=== PATIENT | female | born 1950 | race Caucasian/White ===

== ENCOUNTER 2023-01-16 09:21 | Observation (INO) | payer OTHER, SELFPAY ==
[2023-01-16] VITALS (9 sets, daily range): BP systolic 98–122; BP diastolic 55–63; PULSE 71–87; RESP 14–20; TEMP 36.3; O2SAT 91–93; BMI 24.7
--- NOTE | ~2023-01-16 | XR_ITS ---
EXAMINATION: XR chest 2V DATE: 01/16/2023 10:09 INDICATION: Shortness of breath TECHNIQUE: AP and lateral views of the chest are obtained. COMPARISON: 03/28/2017 FINDINGS: There are minimal airspace opacities of the lung bases. There are small pleural effusions. No pneumothorax is identified. The cardiomediastinal silhouette is normal. There is severe lower thor acic spondylosis. There are changes of anterior fusion in the lower cervical spine. IMPRESSION: 1. Bibasilar airspace opacities, consistent with atelectasis versus pneumonia. 2. Small pleural effusions. Reviewed, dictated and finalized at location B.
--- NOTE | 2023-01-16 06:53 | ADMGEN ---
This patient, Debbie Zapien, was admitted to [facility] Surg Room 330-02. Patient/family oriented to hospital policies and general routines including ID bracelet, bed and alarms, visiting hours, pain management, procedures, bathroom and other care routines, personal items, smoking policy, room service/diet, and visiting hours. Information on how to activate the Rapid Response Team has been discussed. Patient/Family are encouraged to report perceived risks to care and to ask questions if they do not understand what they are told or what they should do.
--- NOTE | 2023-01-16 09:12 | ECG_ITS ---
Measurements Intervals [place] Rate: 67 P: 80 MI: 133 QRS: 0 QRSD: 90 T: 43 QT: 435 QTc: 462 Interpretive Statements SINUS RHYTHM ANTEROSEPTAL INFARCT, AGE INDETERMINATE BASELINE ARTIFACT- I, II, III, AVR, AVL, AVF, V3 ABNORMAL ECG NO PREVIOUS ECG AVAILABLE FOR COMPARISON Electronically Signed On 01-16-2023 10:41:45 CDT by Sky Andujar D.O.
[2023-01-16] MEDS: PREGABALIN (*CRX) 75 MG CAPSULE 150 MG PO ×3 (10:43→17:51)
[2023-01-16] MEDS: DOCUSATE SODIUM 100 MG CAPSULE PO ×2 (10:44→17:51)
[2023-01-16] MEDS: ATORVASTATIN 40 MG TABLET PO (10:44)
[2023-01-16] MEDS: FERROUS SULFATE 325 MG TABLET DR PO (10:44)
[2023-01-16] MEDS: BACLOFEN 10 MG TABLET PO ×2 (10:44→17:51)
[2023-01-16] MEDS: DULoxetine HCL 60 MG CAPSULE.DR PO (10:44)
[2023-01-16] MEDS: predniSONE 20 MG TABLET 60 MG PO (10:44)
[2023-01-16] MEDS: ACETAMINOPHEN 325 MG TABLET 650 MG PO (10:56)
[2023-01-16] MEDS: ALBUTEROL SULFATE NEB 2.5 MG/3 ML INH INHALATION ×4 (10:56→20:56)
[2023-01-16] MEDS: IPRATROPIUM BR 0.02% INH SOLN 0.5 MG/2.5 ML VIAL INHALATION ×4 (10:56→20:56)
[2023-01-16] MEDS: ENOXAPARIN 40 MG/0.4 ML SYRINGE SUB-Q (10:56)
[2023-01-16 11:20] LABS: Basophils Percent Auto 0.2 % (0.2-1.2); Hematocrit 42.3 % (37.0-47.0); Hemoglobin 13.3 g/dL (12.0-15.0); Immature Granulocyte Absolute 0.06 K/mm3 (0.00-0.031); Immature Granulocyte Percent A 0.5 % (0-0.5); Lymphocytes Absolute Auto 0.98 K/mm3 (0.9-3.2); Lymphocytes Percent Auto 7.7 % (18.3-44.2); Mean Corpuscular HGB Conc 31.4 g/dl (32-36); Mean Corpuscular Hemoglobin 30.2 pg (26-34); Mean Corpuscular Volume 95.9 fl (80-100); Mean Platelet Volume 11.6 fl (7.4-10.4); Monocytes Absolute Auto 0.1 K/mm3 (0.1-0.6); Monocytes Percent Auto 0.9 % (2.6-8.5); Neutrophils Absolute Auto 11.5 K/mm3 (1.3-6.7); Neutrophils Percent Auto 90.7 % (45.5-73.1); Platelet Count Result 221 k/mm3 (150-375); Red Blood Count 4.41 M/mm3 (4.2-5.4); Red Cell Distribution Width 14.2 % (11.5-14.5); White Blood Count 12.7 K/mm3 (4.5-10.0)
[2023-01-16] MEDS: AZITHROMYCIN 500 MG/NS 250 ML 500 MG/250 ML BAG 250 MG IVPB (11:29)
[2023-01-16 11:31] LABS: Lactic Acid Reflex 0.9 mmol/L (0.7-2.0)
[2023-01-16 11:34] LABS: Alanine Aminotransferase 16 U/L (6-35); Albumin Level 4.2 g/dL (3.5-5.1); Alkaline Phosphatase 87 U/L (38-126); Anion Gap 11 mmol/L (8-16); Aspartate Amino Transferase 28 U/L (14-36); Bilirubin,Total 0.8 mg/dL (0.2-1.3); Blood Urea Nitrogen 20 mg/dL (7-17); Carbon Dioxide 28 mmol/L (22-30); Chloride 98 mmol/L (98-107); Cholesterol 173 mg/dL (0-200); Estimated CRCL calculation 63 ml/min; Estimated Glomerular Filt Rate > 60; Glucose 110 mg/dL (65-110); HDL Direct 52 mg/dL; Potassium 4.4 mmol/L (3.4-5.0); Sodium 137 mmol/L (137-145); Triglycerides 81 mg/dL (<150)
[2023-01-16 11:42] LABS: LDL Cholesterol Direct 85 mg/dL
[2023-01-16 11:43] LABS: Prothrombin Time 13.7 Seconds (11.1-14.7)
[2023-01-16 11:44] LABS: Partial Thromboplastin Time 33.6 SECONDS (22.3-36.8)
--- NOTE | 2023-01-16 13:37 | PM.IMHP ---
H&P: HPI History of Present Illness Date/Time: 01/16/23 13:37 Chief Complaint: Shortness of breath, productive cough Narrative: This is a pleasant 72-year-old female with a past medical history of COPD chronically wears 2 L of oxygen, chronic back pain, depression, hyperlipidemia, and hypertension. She initially presented to an outside hospital with complaints of shortness of breath, increased productive cough, and chills. Due to lack of bed availability the patient was transferred to [place] on the morning of 01/16. The patient states that over the last 2-3 days she has had gradually increasing shortness of breath. Her symptoms were not improved with home inhalers and albuterol nebulizers. She also has had a productive cough with thick white, bustillo sputum. She says that she has intermittent chills at night but she never checked her temperature. On assessment she has audible wheezes and coarse crackles throughout her bilateral lower bases. She also complains of intermittent, left substernal chest pain. Nothing makes the pain better, nothing makes it worse. She mentions that her daughter said she had a mild heart attack in the past. She is being admitted as observation for COPD exacerbation with IV antibiotics and steroids. Review of Systems Review of Systems: All systems reviewed & are unremarkable except as noted in HPI and below PMFSH Past Medical History Medical History (Updated 01/16/23 @ 13:50 by Maite Colunga APRN) Acute ID Back pain COPD (chronic obstructive pulmonary disease) Depression HLD (hyperlipidemia) HTN (hypertension) Iron deficiency JESENIA (obstructive sleep apnea) Surgical History Surgical History (Updated 01/16/23 @ 13:54 by Maite Colunga APRN) Hx laparoscopic cholecystectomy Previous back surgery S/P foot surgery, left Social History Social History Smoking status: Light tobacco smoker Tobacco type: cigarettes Additional smoking assessment comments: cut down to approx 3 cigs a week Alcohol intake: never Substance use: never Lack of Transportation: No Lack of Food: Never True Current Housing: I Have Housing Concerned About Future Housing: No Difficulty Paying Gas/Electric Bills: No Difficulty Paying for Meds: No Currently Unemployed: No Education: Grade School Difficulty w/ Childcare or Family Care: No Spiritual care concerns: No Meds Home Medications and Allergies Home Medications Medication Instructions Recorded Confirmed Type albuterol sulfate 2.5 mg/3 mL 2.5 mg inhalation TID PRN sob 01/16/23 01/16/23 History (0.083 %) solution for nebulization alendronate 70 mg tablet mg PO 01/16/23 History atorvastatin 40 mg tablet 40 mg PO DAILY 01/16/23 01/16/23 History baclofen 10 mg tablet 10 mg PO BID 01/16/23 01/16/23 History calcium 500 mg tablet 500 mg PO DAILY 01/16/23 01/16/23 History cholecalciferol (vitamin D3) 25 1,000 unit PO DAILY 01/16/23 01/16/23 History mcg (1,000 unit) tablet (Vitamin D3) duloxetine 60 mg capsule,delayed 60 mg PO DAILY 01/16/23 01/16/23 History release ferrous sulfate 325 mg (65 mg 325 mg PO DAILY 01/16/23 01/16/23 History iron) tablet mecobalamin (vitamin B12) 500 mcg 500 mcg PO DAILY 01/16/23 01/16/23 History chewable tablet pregabalin 150 mg capsule 150 mg PO TID 01/16/23 01/16/23 History torsemide 5 mg tablet 5 mg PO BID 01/16/23 01/16/23 History umeclidinium 62.5 mcg-vilanterol 1 inh inhalation BID 01/16/23 01/16/23 History 25 mcg/actuation powdr for inhalation (Anoro Ellipta) Allergies Allergy/AdvReac Type Severity Reaction Status Date / Time No Known Allergies Allergy Unverified 03/28/17 14:43 Vital Signs Vital Signs - 24 hr 01/16/23 07:04 01/16/23 09:10 01/16/23 10:55 Temperature 97.3 F L Pulse Rate 87 77 Respiratory Rate 14 18 Blood Pressure 122/63 Pulse Oximetry 91 93 92 Oxygen Delivery Nasal Cannula Nasal Ca
[2023-01-16] MEDS: PROCHLORPERAZINE EDISYLATE 10 MG/2 ML VIAL IV PUSH (13:57)
[2023-01-16 14:13] LABS: NT Pro B Type Natriuretic Pept 1400 pg/mL (19.9-100); Troponin I < 0.012 ng/mL (0.000-0.034)
[2023-01-17] VITALS (14 sets, daily range): BP systolic 102–123; BP diastolic 46–61; PULSE 65–89; RESP 14–20; TEMP 36.1–36.8; O2SAT 93–96
--- NOTE | 2023-01-17 05:16 | PCRCNOTE ---
Patient refused her 0000 and 0400 updraft treatments due to wanting sleep. Treatment to resume at 0800.
--- NOTE | 2023-01-17 05:19 | PCRCNOTE ---
Ellipta omitted at 2000 due to this being a QD treatment. Ellipta will be administered at 0800.
[2023-01-17] MEDS: ALBUTEROL SULFATE NEB 2.5 MG/3 ML INH INHALATION ×4 (07:52→20:38)
[2023-01-17] MEDS: IPRATROPIUM BR 0.02% INH SOLN 0.5 MG/2.5 ML VIAL INHALATION ×4 (07:52→20:35)
[2023-01-17] MEDS: UMECLIDINIUM/VILANTEROL 62.5-25 MCG ELLIPTA 1 PUFF INHALATION (08:08)
[2023-01-17] MEDS: ENOXAPARIN 40 MG/0.4 ML SYRINGE SUB-Q (08:13)
[2023-01-17] MEDS: CALCIUM CARBONATE (OSCAL) 500 MG TABLET PO (08:13)
[2023-01-17] MEDS: PREGABALIN (*CRX) 75 MG CAPSULE 150 MG PO ×3 (08:13→16:13)
[2023-01-17] MEDS: CYANOCOBALAMIN 500 MCG TABLET PO (08:13)
[2023-01-17] MEDS: ATORVASTATIN 40 MG TABLET PO (08:13)
[2023-01-17] MEDS: CHOLECALCIFEROL 1,000 UNITS TABLET 1000 UNITS PO (08:13)
[2023-01-17] MEDS: BACLOFEN 10 MG TABLET PO ×2 (08:13→16:13)
[2023-01-17] MEDS: FERROUS SULFATE 325 MG TABLET DR PO (08:13)
[2023-01-17] MEDS: predniSONE 20 MG TABLET 60 MG PO (08:13)
[2023-01-17] MEDS: DULoxetine HCL 60 MG CAPSULE.DR PO (08:13)
[2023-01-17] MEDS: DOCUSATE SODIUM 100 MG CAPSULE PO ×2 (08:14→16:13)
[2023-01-17] MEDS: polyethylene glycoL 3350 17 GM POWD.PACK PO (08:14)
--- NOTE | 2023-01-17 08:47 | PM.IMPN ---
Progress Note: A&P Assessment and Plan (1) HTN (hypertension): Code(s): I10 - Essential (primary) hypertension Status: Acute Assessment and Plan: Blood pressures reviewed. [id number] Patient is on torsemide Re-started on admission. (2) JESENIA (obstructive sleep apnea): Code(s): G47.33 - Obstructive sleep apnea (adult) (pediatric) Status: Acute Assessment and Plan: Patient states she is supposed to use a CPAP but she is non-compliant. On home oxygen 2 L NC at baseline CPAP ordered while inpatient (3) COPD (chronic obstructive pulmonary disease): Code(s): J44.9 - Chronic obstructive pulmonary disease, unspecified Status: Acute Assessment and Plan: On Anoro-Ellipta daily, Albuterol PRN Chronically on 2 L NC SOB and productive cough increased from baseline Leukocytosis at OSH was 15,000 on presentation. WBC trend 15->12->16. Expect leukocytosis bump is from steroids. Antibiotics with Rocephin and Azithromycin Prednisone 60 mg PO daily for 5 days Scheduled nebulizers Subjective Date/time seen: 01/17/23 08:47 Interval history: Chief Complaint: Shortness of breath, productive cough Narrative: This is a pleasant 72-year-old female with a past medical history of COPD chronically wears 2 L of oxygen, chronic back pain, depression, hyperlipidemia, and hypertension.? She initially presented to an outside hospital with complaints of shortness of breath, increased productive cough, and chills.? Due to lack of bed availability the patient was transferred to [place] on the morning of 01/16.? The patient states that over the last 2-3 days she has had gradually increasing shortness of breath.? Her symptoms were not improved with home inhalers and albuterol nebulizers.? She also has had a productive cough with thick white, bustillo sputum.? She says that she has intermittent chills at night but she never checked her temperature.? On assessment she has audible wheezes and coarse crackles throughout her bilateral lower bases.? She also complains of intermittent, left substernal chest pain.? Nothing makes the pain better, nothing makes it worse. She mentions that her daughter said she had a mild heart attack in the past. She is being admitted as observation for COPD exacerbation with IV antibiotics and steroids. 01/17: Patient reports improvement with breathing, cough, and shortness of breath. She still does not feel back to her baseline but she can tell that the antibiotics and steroids are helping. She is maintaining her oxygen saturation with her baseline O2 requirements of 2 L. she still has some extra thiago wheeze and coarse sounds bilaterally. Anticipate keeping her today for IV antibiotics. She does have a bump in her white count however she is on steroids so this is likely contributory. Review of Systems Review of Systems: All systems reviewed & are unremarkable except as noted in HPI and below Exam Narrative: General: chronically ill appearing, thin, appears stated age. HEENT: normocephalic, atraumatic. Mucous membranes moist. EOMI, PERRLA, bilateral sclera anicteric, no conjunctival injection. Neck supple without JVD, lymphadenopathy, or bruit. Respiratory: coarse with auditory expiratory wheezes to auscultation bilaterally. No rales/rhonic/wheezes. Cardiovascular: Regular rate and rhythm, normal S1-S2 upon auscultation. No murmurs, rubs, or clicks. PMI is nondisplaced, capillary re-fill less than 3 second. Abdomen: Soft, flat, no pulsatile masses, non-distended and non-tender. No rebound, no guarding. No CVA tenderness, no hepatosplenomegaly. Bowel sounds present to all four quadrants. No high pitch or tinkling sounds, resonant to percussion. Extremities: No cyanosis, clubbing, or edema present. Bilateral lower extremities have some erythema without warmth. Pulses are palpable 2/2. Active ROM to all four extremities. Neuro: Alert and orientated x 4. PERRLA. Cranial nerves 2-12 intact
[2023-01-17] MEDS: AZITHROMYCIN 500 MG/NS 250 ML 500 MG/250 ML BAG 250 MG IVPB (09:35)
[2023-01-17 09:42] LABS: Basophils Percent Auto 0.1 % (0.2-1.2); Hematocrit 38.3 % (37.0-47.0); Hemoglobin 12.1 g/dL (12.0-15.0); Immature Granulocyte Absolute 0.08 K/mm3 (0.00-0.031); Immature Granulocyte Percent A 0.5 % (0-0.5); Lymphocytes Absolute Auto 1.74 K/mm3 (0.9-3.2); Lymphocytes Percent Auto 10.3 % (18.3-44.2); Mean Corpuscular HGB Conc 31.6 g/dl (32-36); Mean Corpuscular Hemoglobin 30.2 pg (26-34); Mean Corpuscular Volume 95.5 fl (80-100); Mean Platelet Volume 11.5 fl (7.4-10.4); Monocytes Absolute Auto 0.9 K/mm3 (0.1-0.6); Monocytes Percent Auto 5.2 % (2.6-8.5); Neutrophils Absolute Auto 14.2 K/mm3 (1.3-6.7); Neutrophils Percent Auto 83.9 % (45.5-73.1); Platelet Count Result 230 k/mm3 (150-375); Red Blood Count 4.01 M/mm3 (4.2-5.4); Red Cell Distribution Width 14.1 % (11.5-14.5); White Blood Count 16.9 K/mm3 (4.5-10.0)
[2023-01-17 09:57] LABS: Anion Gap 9 mmol/L (8-16); Blood Urea Nitrogen 23 mg/dL (7-17); Calcium 8.8 mg/dL (8.4-10.2); Carbon Dioxide 29 mmol/L (22-30); Chloride 101 mmol/L (98-107); Estimated CRCL calculation 48 ml/min; Estimated Glomerular Filt Rate > 60; Glucose 172 mg/dL (65-110); Magnesium 2.4 mg/dL (1.6-2.3); Potassium 3.3 mmol/L (3.4-5.0); Sodium 139 mmol/L (137-145)
[2023-01-17 10:04] LABS: NT Pro B Type Natriuretic Pept 1760 pg/mL (19.9-100)
[2023-01-17] MEDS: SODIUM CHLORIDE 0.9% IV 100 ML (10:04)
--- NOTE | 2023-01-17 12:22 | PCPTNOTE ---
Discussed with nursing. Nurse states pt was able to get out of bed and ambulate to bathroom without difficulty. Spoke with ordering provider as pt appears to not require skilled services at this time. Will discharge orders, ordering provider agreeable.
--- NOTE | 2023-01-17 12:38 | PCOTNOTE ---
Spoke with RN and pt. is contact guard to independent with ADL's and functional transfers. MD good with discharge. No OT evaluation needed at this time.
[2023-01-17] MEDS: POTASSIUM CHLORIDE 20 MEQ ER TABLET 40 MEQ PO (16:13)
[2023-01-18] VITALS (7 sets, daily range): BP systolic 131; BP diastolic 66; PULSE 76–83; RESP 18; TEMP 36.8; O2SAT 98–100
[2023-01-18 06:25] LABS: Basophils Percent Auto 0.3 % (0.2-1.2); Hematocrit 37.8 % (37.0-47.0); Hemoglobin 12.1 g/dL (12.0-15.0); Immature Granulocyte Absolute 0.13 K/mm3 (0.00-0.031); Immature Granulocyte Percent A 1.1 % (0-0.5); Lymphocytes Absolute Auto 1.99 K/mm3 (0.9-3.2); Lymphocytes Percent Auto 16.9 % (18.3-44.2); Mean Corpuscular Hemoglobin 30.2 pg (26-34); Mean Corpuscular Volume 94.3 fl (80-100); Mean Platelet Volume 11.3 fl (7.4-10.4); Monocytes Absolute Auto 0.9 K/mm3 (0.1-0.6); Monocytes Percent Auto 7.9 % (2.6-8.5); Neutrophils Absolute Auto 8.7 K/mm3 (1.3-6.7); Neutrophils Percent Auto 73.8 % (45.5-73.1); Platelet Count Result 221 k/mm3 (150-375); Red Blood Count 4.01 M/mm3 (4.2-5.4); Red Cell Distribution Width 14.4 % (11.5-14.5); White Blood Count 11.8 K/mm3 (4.5-10.0)
[2023-01-18 06:37] LABS: Anion Gap 0 mmol/L (8-16); Blood Urea Nitrogen 20 mg/dL (7-17); Calcium 8.6 mg/dL (8.4-10.2); Carbon Dioxide 34 mmol/L (22-30); Chloride 104 mmol/L (98-107); Estimated CRCL calculation 63 ml/min; Estimated Glomerular Filt Rate > 60; Glucose 99 mg/dL (65-110); Magnesium 2.5 mg/dL (1.6-2.3); Potassium 4.3 mmol/L (3.4-5.0); Sodium 138 mmol/L (137-145)
[2023-01-18] MEDS: IPRATROPIUM BR 0.02% INH SOLN 0.5 MG/2.5 ML VIAL INHALATION ×2 (08:12→12:45)
[2023-01-18] MEDS: UMECLIDINIUM/VILANTEROL 62.5-25 MCG ELLIPTA 1 PUFF INHALATION (08:13)
[2023-01-18] MEDS: ALBUTEROL SULFATE NEB 2.5 MG/3 ML INH INHALATION ×2 (08:13→12:45)
--- NOTE | 2023-01-18 08:47 | PM.IMPN ---
Progress Note: A&P Assessment and Plan (1) HTN (hypertension): Code(s): I10 - Essential (primary) hypertension Status: Acute Assessment and Plan: Blood pressures reviewed. [id number]/60 Patient is on torsemide Re-started on admission. (2) JESENIA (obstructive sleep apnea): Code(s): G47.33 - Obstructive sleep apnea (adult) (pediatric) Status: Acute Assessment and Plan: Patient states she is supposed to use a CPAP but she is non-compliant. On home oxygen 2 L NC at baseline CPAP ordered while inpatient (3) COPD (chronic obstructive pulmonary disease): Code(s): J44.9 - Chronic obstructive pulmonary disease, unspecified Status: Acute Assessment and Plan: On Anoro-Ellipta daily, Albuterol PRN Chronically on 2 L NC SOB and productive cough increased from baseline Leukocytosis at OSH was 15,000 on presentation. WBC trend 15->12->16->11.8. Antibiotics with Rocephin and Azithromycin. Plan to d/c on Augmentin and azithromycin BNP elevated likely from infection. Prednisone 60 mg PO daily for 5 days Scheduled nebulizers Subjective Date/time seen: 01/18/23 08:47 Interval history: Chief Complaint: Shortness of breath, productive cough Narrative: This is a pleasant 72-year-old female with a past medical history of COPD chronically wears 2 L of oxygen, chronic back pain, depression, hyperlipidemia, and hypertension.? She initially presented to an outside hospital with complaints of shortness of breath, increased productive cough, and chills.? Due to lack of bed availability the patient was transferred to [place] on the morning of 01/16.? The patient states that over the last 2-3 days she has had gradually increasing shortness of breath.? Her symptoms were not improved with home inhalers and albuterol nebulizers.? She also has had a productive cough with thick white, bustillo sputum.? She says that she has intermittent chills at night but she never checked her temperature.? On assessment she has audible wheezes and coarse crackles throughout her bilateral lower bases.? She also complains of intermittent, left substernal chest pain.? Nothing makes the pain better, nothing makes it worse. She mentions that her daughter said she had a mild heart attack in the past. She is being admitted as observation for COPD exacerbation with IV antibiotics and steroids. 01/17: Patient reports improvement with breathing, cough, and shortness of breath. She still does not feel back to her baseline but she can tell that the antibiotics and steroids are helping. She is maintaining her oxygen saturation with her baseline O2 requirements of 2 L. she still has some extra thiago wheeze and coarse sounds bilaterally. Anticipate keeping her today for IV antibiotics. She does have a bump in her white count however she is on steroids so this is likely contributory. 01/18: Debbie continues to improve. She states that her shortness of breath and cough are much improved. She still has a little bit of an expiratory wheeze but she will go home on p.o. prednisone. She denies any fever chills. And she is on her baseline O2 at 2 L nasal cannula. Medically she is ready to discharge today. Review of Systems Review of Systems: All systems reviewed & are unremarkable except as noted in HPI and below Exam Narrative: General: chronically ill appearing, thin, appears stated age. HEENT: normocephalic, atraumatic. Mucous membranes moist. EOMI, PERRLA, bilateral sclera anicteric, no conjunctival injection. Neck supple without JVD, lymphadenopathy, or bruit. Respiratory: decreased presence of expiratory wheezes to auscultation bilaterally. No rales/rhonic/wheezes. Cardiovascular: Regular rate and rhythm, normal S1-S2 upon auscultation. No murmurs, rubs, or clicks. PMI is nondisplaced, capillary re-fill less than 3 second. Abdomen: Soft, flat, no pulsatile masses, non-distended and non-tender. No rebound, no guarding. No CVA tendernes
[2023-01-18] MEDS: ATORVASTATIN 40 MG TABLET PO (08:51)
[2023-01-18] MEDS: CYANOCOBALAMIN 500 MCG TABLET PO (08:51)
[2023-01-18] MEDS: CALCIUM CARBONATE (OSCAL) 500 MG TABLET PO (08:51)
[2023-01-18] MEDS: CHOLECALCIFEROL 1,000 UNITS TABLET 1000 UNITS PO (08:51)
[2023-01-18] MEDS: DOCUSATE SODIUM 100 MG CAPSULE PO (08:51)
[2023-01-18] MEDS: BACLOFEN 10 MG TABLET PO (08:51)
[2023-01-18] MEDS: DULoxetine HCL 60 MG CAPSULE.DR PO (08:51)
[2023-01-18] MEDS: FERROUS SULFATE 325 MG TABLET DR PO (08:51)
[2023-01-18] MEDS: AZITHROMYCIN 500 MG/NS 250 ML 500 MG/250 ML BAG 250 MG IVPB (08:51)
[2023-01-18] MEDS: PREGABALIN (*CRX) 75 MG CAPSULE 150 MG PO ×2 (08:52→12:32)
[2023-01-18] MEDS: predniSONE 20 MG TABLET 60 MG PO (08:52)
[2023-01-18 08:56] LABS: Procalcitonin 0.1 ng/mL
[2023-01-18] MEDS: ENOXAPARIN 40 MG/0.4 ML SYRINGE SUB-Q (09:02)
--- NOTE | 2023-01-18 12:59 | PM.DS ---
DS: Admitting Diagnosis Discharge Date 01/18/23 Admitting Diagnosis COPD exacerbation DS: Discharge Diagnosis Discharge Diagnosis (1) HTN (hypertension): Code(s): I10 - Essential (primary) hypertension Status: Acute Assessment and Plan: Blood pressures reviewed. [id number]/60 Patient is on torsemide Re-started on admission. (2) JESENIA (obstructive sleep apnea): Code(s): G47.33 - Obstructive sleep apnea (adult) (pediatric) Status: Acute Assessment and Plan: Patient states she is supposed to use a CPAP but she is non-compliant. On home oxygen 2 L NC at baseline CPAP ordered while inpatient (3) COPD (chronic obstructive pulmonary disease): Code(s): J44.9 - Chronic obstructive pulmonary disease, unspecified Status: Acute Assessment and Plan: On Anoro-Ellipta daily, Albuterol PRN Chronically on 2 L NC SOB and productive cough increased from baseline Leukocytosis at OSH was 15,000 on presentation. WBC trend 15->12->16->11.8. Antibiotics with Rocephin and Azithromycin. Plan to d/c on Augmentin and azithromycin BNP elevated likely from infection. Prednisone 60 mg PO daily for 5 days Scheduled nebulizers DS: Summary Hospital Course Hospital Course: This is a pleasant 72-year-old female with a past medical history of COPD chronically wears 2 L of oxygen, chronic back pain, depression, hyperlipidemia, and hypertension.? She initially presented to an outside hospital with complaints of shortness of breath, increased productive cough, and chills.? Due to lack of bed availability the patient was transferred to [place] on the morning of 01/16.? The patient states that over the last 2-3 days she has had gradually increasing shortness of breath.? Her symptoms were not improved with home inhalers and albuterol nebulizers.? She also has had a productive cough with thick white, bustillo sputum.? She says that she has intermittent chills at night but she never checked her temperature.? On assessment she has audible wheezes and coarse crackles throughout her bilateral lower bases.? She also complains of intermittent, left substernal chest pain.? Nothing makes the pain better, nothing makes it worse. She mentions that her daughter said she had a mild heart attack in the past. She is being admitted as observation for COPD exacerbation with IV antibiotics and steroids. 01/17:? Patient reports improvement with breathing, cough, and shortness of breath.? She still does not feel back to her baseline but she can tell that the antibiotics and steroids are helping.? She is maintaining her oxygen saturation with her baseline O2 requirements of 2 L. she still has some extra thiago wheeze and coarse sounds bilaterally.? Anticipate keeping her today for IV antibiotics.? She does have a bump in her white count however she is on steroids so this is likely contributory. 01/18:? Debbie continues to improve.? She states that her shortness of breath and cough are much improved.? She still has a little bit of an expiratory wheeze but she will go home on p.o. prednisone.? She denies any fever chills.? And she is on her baseline O2 at 2 L nasal cannula.? Medically she is ready to discharge today. Status at Discharge Cognitive/behavioral status at discharge: A&O x4, pleasant Time Spent with Patient Time attestation: Total time spent providing and/or coordinating discharge services: 42 Exam Narrative: General: chronically ill appearing, thin, appears stated age. HEENT: normocephalic, atraumatic. Mucous membranes moist. EOMI, PERRLA, bilateral sclera anicteric, no conjunctival injection. Neck supple without JVD, lymphadenopathy, or bruit. Respiratory: decreased presence of expiratory wheezes to auscultation bilaterally. No rales/rhonic/wheezes. Cardiovascular: Regular rate and rhythm, normal S1-S2 upon auscultation. No murmurs, rubs, or clicks. PMI is nondisplaced, capillary re-fill less than 3 second. Abdomen: Soft, fla
--- NOTE | 2023-01-18 13:30 | PC.NURSE ---
Creative Consultant spoke with Tiera in regards to patient's discharge. Tiera states that patient will be picked up by [facility].
[2023-01-18] MEDS: AZITHROMYCIN 250 MG TABLET 500 MG PO (13:37)
== END 2023-01-18 16:00 | disposition home or self-care (01) ==
PROVIDERS: Nurse Practitioner Acute Care; Admitting Provider Internal Medicine; Visit Provider Student in an Organized Health Care Education/Training Program
DX: I10 Essential (primary) hypertension (principal); G47.33 Obstructive sleep apnea (adult) (pediatric); J44.9 Chronic obstructive pulmonary disease, unspecified; Z91.199 Patient's noncompliance with other medical treatment and regimen due to unspecified reason; Z99.81 Dependence on supplemental oxygen; E78.5 Hyperlipidemia, unspecified; F32.A Depression, unspecified; D72.829 Elevated white blood cell count, unspecified; J90 Pleural effusion, not elsewhere classified; G89.29 Other chronic pain; I25.2 Old myocardial infarction; M54.9 Dorsalgia, unspecified; R94.31 Abnormal electrocardiogram [ECG] [EKG]; F17.210 Nicotine dependence, cigarettes, uncomplicated; Z79.51 Long term (current) use of inhaled steroids; Z79.899 Other long term (current) drug therapy
CPT/HCPCS: 36415; 71046; 80048; 80053; 80061; 83036; 83605; 83735; 83880; 84145; 84484; 85025; 85610; 85730; 87040; 87070; 87205; 93005; 94640; 96365; 96366; 96367; 96372; 96375; A9270; G0378; J0456; J0696; J0780; J1650; J7512

== ENCOUNTER 2025-02-24 15:21 | Outpatient (CLI) | payer OTHER, SELFPAY ==
--- NOTE | ~2025-02-24 | XR_ITS ---
EXAMINATION: XR chest 2V, 02/24/2025 15:44 CDT HISTORY: Chest pain/ cough/ sob x3 weeks COMPARISON: No comparisons available. Technique: 2 views obtained. Findings: COPD changes otherwise the lungs are clear No pneumothorax. Heart is normal size. Mediastinal and hilar contours are within normal limits. Bony thorax no acute abnormality. Impression: No acute cardiopulmonary abnormality. Reviewed, dictated and finalized at location P. Impression: No acute cardiopulmonary abnormality.
--- NOTE | 2025-02-24 15:43 | ECG_ITS ---
Test Date: 2025-02-24 16:03:09 Measurements Intervals [place] Rate: 85 P: 76 [place]: 143 QRS: 34 QRSD: 88 T: 65 QT: 374 QTc: 446 Interpretive Statements SINUS RHYTHM ANTEROSEPTAL INFARCT, AGE INDETERMINATE BASELINE ARTIFACT- I, AVL, V5 ABNORMAL ECG No previous ECG available for comparison Electronically Signed On 02-24-2025 16:17:22 CDT by Sky Andujar D.O.
[2025-02-24 15:57] LABS: Hematocrit 45.1 % (35.0-42.0); Hemoglobin 14.3 g/dL (11.7-13.8); Immature Granulocyte Percent A 0.4 % (0.0-0.0); Lymphocytes Absolute Auto 2.47 K/mm3 (1.10-4.50); Mean Corpuscular HGB Conc 31.7 g/dL (32-36); Mean Corpuscular Hemoglobin 30.4 pg (27.0-31.0); Mean Corpuscular Volume 95.8 fL (78.0-102.0); Nucleated Red Blood Cells Absolute Auto 0.00 K/mm3 (0.00-0.00); Nucleated Red Blood Cells Perc 0.0 % (0-0.0); Platelet Count Result 239 K/mm3 (150-420); Red Blood Count 4.71 M/mm3 (4.20-5.40); White Blood Count 9.8 K/mm3 (4.8-10.8)
[2025-02-24 16:31] LABS: Iron 46 ug/dL (37-170)
[2025-02-24 16:33] LABS: Alanine Aminotransferase 14 U/L (6-35); Albumin Level 4.1 g/dL (3.5-5.1); Alkaline Phosphatase 74 U/L (38-126); Anion Gap 6 mmol/L (4-12); Aspartate Amino Transferase 28 U/L (14-36); Bilirubin,Total 0.4 mg/dL (0.2-1.3); Blood Urea Nitrogen 15 mg/dL (7-17); Calcium 10.6 mg/dL (8.4-10.2); Carbon Dioxide 37 mmol/L (22-30); Chloride 99 mmol/L (98-107); Cholesterol 217 mg/dL (0-200); Estimated Glomerular Filt Rate > 60; Glucose 109 mg/dL (65-110); HDL Direct 92 mg/dL; Osmolality Calculated 295 mOsm/kg (285-295); Potassium 3.6 mmol/L (3.4-5.0); Sodium 142 mmol/L (137-145); Total Protein 7.0 g/dL (6.3-8.2); Triglycerides 90 mg/dL (<150)
[2025-02-24 16:40] LABS: Percent Iron Saturation 19 % (20-50)
[2025-02-24 17:07] LABS: Ferritin 286.00 ng/mL (11.1-264)
[2025-02-24 17:21] LABS: Vitamin B12 489.0 pg/mL (239-931)
== END 2025-02-24 15:22 | disposition home or self-care (01) ==
PROVIDERS: PCP Family Medicine; Visit Provider Physician Assistant
DX: R07.89 Other chest pain (principal); J44.1 Chronic obstructive pulmonary disease with (acute) exacerbation; E78.5 Hyperlipidemia, unspecified; E53.8 Deficiency of other specified B group vitamins; D50.9 Iron deficiency anemia, unspecified
CPT/HCPCS: 36415; 71046; 80053; 80061; 82607; 82728; 83540; 83550; 85025; 93005